=== PATIENT | male | born 1990 | race African-American/Black ===

== ENCOUNTER 2022-10-05 18:32 | Emergency (ER) | payer MEDICAID ==
[~2022-10-05] VITALS: Ht 182.9 cm; Wt 84.0 kg
[2022-10-05 18:42] VITALS: BP 142/76
[2022-10-05] MEDS ORDERED: IBUPROFEN 800MG TABLET PO ONE (22:30)
[2022-10-05] MEDS ORDERED: IBUP-2030 PO (23:30)
== END 2022-10-06 00:11 | disposition home or self-care (01) ==
LOC: ER 18:32
DX: M25.512 Pain in left shoulder (principal); M25.552 Pain in left hip; G89.11 Acute pain due to trauma; V49.49XA Driver injured in collision with other motor vehicles in traffic accident, initial encounter; Y93.89 Activity, other specified; Y92.488 Other paved roadways as the place of occurrence of the external cause
CPT/HCPCS: 73030; 99283

== ENCOUNTER 2024-09-22 14:28 | Inpatient (IN) | payer MEDICAID, OTHER ==
[~2024-09-22] VITALS: Ht 175.3 cm; Wt 99.8 kg
[~2024-09-22 14:28] MED LIST: IBUP-2030 PO
[2024-09-22 14:30] VITALS: O2SAT 98
[2024-09-22 15:09] LABS: BASOPHILS % 0.7 % (0.0-2.0); EOSINOPHILS % 1.6 % (0.0-5.0); HEMOGLOBIN. 16.6 g/dL (14.0-18.0); LYMPHOCYTES % 25.8 % (20.0-50.0); MEAN CORPUSCULAR HEMOGLOBIN 27.8 pg (28.0-32.0); MEAN CORPUSCULAR HGB CONC 32.6 g/dL (31.0-37.0); MEAN CORPUSCULAR VOLUME 85.1 fL (80.0-94.0); MEAN PLATELET VOLUME 10.5 fl (7.4-10.4); MONOCYTES % 6.3 % (2.0-8.0); NEUTROPHILS % 65.6 % (40.0-76.0); PLATELET 139 x1000/uL (130-400); RED BLOOD CELL COUNT 5.99 mill/uL (4.7-6.1); RED CELL DISTRIBUTION WIDTH 14.1 % (11.6-14.6); WHITE BLOOD COUNT 8.2 x1000/uL (4.5-11.0)
[2024-09-22 15:11] LABS: CHLORIDE 109 mEq/L (98-107); POTASSIUM 4.1 mEq/L (3.5-5.1); SODIUM 144 mEq/L (136-145)
[2024-09-22 15:12] LABS: CARBON DIOXIDE 24 mEq/L (21-32)
[2024-09-22 15:17] LABS: CREATININE 1.3 mg/dL (0.6-1.3); ETHANOL BLOOD 97 mg/dL (<10); GLUCOSE 91 mg/dL (70-105); UREA NITROGEN BLOOD 10 mg/dL (9-23)
[2024-09-22 15:19] LABS: ACETAMINOPHEN < 2 ug/mL (10-30)
[2024-09-22] MEDS ORDERED: DOCUSATE SODIUM 100MG CAPSULE PO PRN (18:30)
[2024-09-22] MEDS ORDERED: ACETAMINOPHEN 325MG TABLET PO PRN (18:30)
[2024-09-22] MEDS ORDERED: CLONIDINE 0.1MG TABLET PO PRN (18:30)
[2024-09-22] MEDS ORDERED: IPRATROPIUM/ALBUTEROL 0.5-3(2.5)MG/3ML NEB NEB PRN (18:30)
[2024-09-22] MEDS ORDERED: ZOLPIDEM TARTRATE 5MG TABLET PO PRN (20:30)
[2024-09-22 21:34] LABS: CLARITY URINE CLEAR (CLEAR); COLOR URINE YELLOW (YELLOW); GLUCOSE URINE NEGATIVE (NEGATIVE); KETONES URINE NEGATIVE (NEGATIVE); LEUKOCYTE ESTERASE URINE NEGATIVE (NEGATIVE); NITRITE URINE NEGATIVE (NEGATIVE); OCCULT BLOOD URINE NEGATIVE (NEGATIVE); PROTEIN URINE NEGATIVE (NEGATIVE); SPECIFIC GRAVITY URINE 1.007 (1.005-1.030); UROBILINOGEN URINE 0.2 E.U./dL (0.2-1.0)
[2024-09-22 21:44] LABS: *AMPHETAMINES SCREEN URINE NEGATIVE (NEGATIVE)
[2024-09-22 21:45] LABS: *BARBITURATES SCREEN URINE NEGATIVE (NEGATIVE); *BENZODIAZEPINES SCREEN URINE NEGATIVE (NEGATIVE); *COCAINE SCREEN URINE NEGATIVE (NEGATIVE); CANNABINOID URINE SCREEN PRESUMPTIVE POSITIVE (NEGATIVE); ECSTASY MDMA SCREEN URINE NEGATIVE (NEGATIVE); METHADONE URINE SCREEN NEGATIVE (NEGATIVE); OPIATES URINE SCREEN NEGATIVE (NEGATIVE); PHENCYCLIDINE URINE SCREEN NEGATIVE (NEGATIVE)
[2024-09-22] MEDS: ONDANSETRON HCL 4MG/2ML INJ IV PRN (22:02)
[2024-09-22] MEDS: SODIUM CHLORIDE 0.9% 1,000 ML IV SCH (22:03)
[2024-09-22] MEDS: THIAMINE HCL 100 MG in SODIUM CHLORIDE 0.9% 50 ML IV NR (22:10)
[2024-09-23 04:31] LABS: BASOPHILS % 0.5 % (0.0-2.0); DIFFERENTIAL COMMENT 0; EOSINOPHILS % 1.7 % (0.0-5.0); HEMATOCRIT. 44.3 % (42.0-52.0); HEMOGLOBIN. 14.9 g/dL (14.0-18.0); MEAN CORPUSCULAR HEMOGLOBIN 28.4 pg (28.0-32.0); MEAN CORPUSCULAR HGB CONC 33.5 g/dL (31.0-37.0); MEAN CORPUSCULAR VOLUME 84.7 fL (80.0-94.0); MEAN PLATELET VOLUME 11.4 fl (7.4-10.4); MONOCYTES % 6.3 % (2.0-8.0); NEUTROPHILS % 67.5 % (40.0-76.0); PLATELET 145 x1000/uL (130-400); RED BLOOD CELL COUNT 5.24 mill/uL (4.7-6.1); RED CELL DISTRIBUTION WIDTH 13.8 % (11.6-14.6); WHITE BLOOD COUNT 10.7 x1000/uL (4.5-11.0)
[2024-09-23 04:43] LABS: CHLORIDE 110 mEq/L (98-107); SODIUM 143 mEq/L (136-145)
[2024-09-23 04:44] LABS: CARBON DIOXIDE 23 mEq/L (21-32)
[2024-09-23 04:45] LABS: CALCIUM 9.1 mg/dL (8.7-10.4)
[2024-09-23 04:49] LABS: CREATININE 1.2 mg/dL (0.6-1.3); GLUCOSE 93 mg/dL (70-105); UREA NITROGEN BLOOD 10 mg/dL (9-23)
[2024-09-23 04:50] LABS: CREATINE KINASE MB FRACTION < 0.5 ng/mL (0.5-3.6)
[2024-09-23] MEDS: ENOXAPARIN 30MG/0.3ML SYR SUBCUT SCH (09:00)
[2024-09-23 20:30] VITALS: BP 152/101; PULSE 76; RESP 17; TEMP 36.3918; O2SAT 98
[2024-09-23 21:00] VITALS: BP 152/101; PULSE 76; RESP 18; TEMP 36.4736
[2024-09-24 00:50] VITALS: BP 140/88; PULSE 70; RESP 19; TEMP 36.28068; O2SAT 97
[2024-09-24 04:07] VITALS: BP 134/91; PULSE 77; RESP 18; TEMP 36.44736; O2SAT 99
[2024-09-24 08:00] VITALS: BP 118/82; PULSE 88; RESP 18; TEMP 36.6696; TEMP 36.66960; O2SAT 98
== END 2024-09-24 13:32 | disposition short-term general hospital (02) | DRG 917 ==
LOC: ER 14:28 → EDBEDREQTM 16:16 → EDBEDREQ 16:16 → 5WST 09-23 08:50
PROVIDERS: ADMIT Internal Medicine; ATTEND Internal Medicine
DX: T50.992A Poisoning by other drugs, medicaments and biological substances, intentional self-harm, initial encounter (principal); G92.8 Other toxic encephalopathy; I10 Essential (primary) hypertension; F12.10 Cannabis abuse, uncomplicated; F10.129 Alcohol abuse with intoxication, unspecified; Y90.4 Blood alcohol level of 80-99 mg/100 ml; Z59.86 Financial insecurity; Z79.891 Long term (current) use of opiate analgesic; Z88.2 Allergy status to sulfonamides; Z79.899 Other long term (current) drug therapy; Y92.89 Other specified places as the place of occurrence of the external cause
CPT/HCPCS: 36415; 80048; 80305; 80307; 80320; 80329; 81003; 82553; 85025; 93005; 93970; 99285; J1650; J2405; J3411; G0480